=== PATIENT | male | born 1980 | race Two or more races ===

== ENCOUNTER 2023-01-24 05:44 | Emergency (ER) | payer OTHER ==
[~2023-01-24] VITALS: Ht 195.6 cm; Wt 102.1 kg
== END 2023-01-24 08:22 | disposition home or self-care (01) ==
LOC: ER 05:44
DX: S01.81XA Laceration without foreign body of other part of head, initial encounter (principal); W18.39XA Other fall on same level, initial encounter; Y93.89 Activity, other specified; Y92.511 Restaurant or cafe as the place of occurrence of the external cause; Y99.8 Other external cause status